=== PATIENT | female | born 1985 | race African-American/Black ===

== ENCOUNTER 2017-10-11 15:06 | Outpatient (CLI) | payer BC ==
--- NOTE | 2017-10-11 18:42 | MRI ---
MRI OF THE BRAIN WITH AND WITHOUT IV CONTRAST 10/11/17 HISTORY: Vestibular neuronitis. Dizziness. FINDINGS: No evidence of infarct, hemorrhage, mass, midline shift or abnormal extra-axial fluid collections are seen. Postcontrast images demonstrate a 7 mm focus of postcontrast enhancement in the alma to the le ft of midline. This demonstrates no signal abnormality on noncontrasted T1, T2 or FLAIR images and is consistent with capillary telangiectasia. No restricted diffusion is seen. No signal abnormalities are seen on the highly sensitive FLAIR image s. Dural calcifications are present. High resolution images of the IACs demonstrates no evidence of m ass or abnormal postcontrast enhancement. There is mucosal disease in the paranasal sinuses. IMPRESSION: 1. 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 2. Normal MR appearance of the IACs. The study was interpreted in consultation with Dr. Jone Joiner (neuroradiologist), who concurs. POS: [facility]
== END 2017-10-11 15:07 | disposition home or self-care (01) ==
LOC: MRI 15:06
PROVIDERS: ATTEND Otolaryngology Plastic Surgery within the Head & Neck
DX: H81.20 Vestibular neuronitis, unspecified ear (principal); I78.1 Nevus, non-neoplastic
CPT/HCPCS: 70553

== ENCOUNTER 2018-12-11 15:17 | Outpatient (CLI) | payer BC ==
--- NOTE | 2018-12-11 16:42 | ULT ---
Exam thyroid ultrasound History: Goiter. Thyroid lobe measures 5.9 x 2.3 x 2.9 cm. Left thyroid lobe measures 6.0 x 1.9 x 2.7 cm Thyroid isthmus measures 0.8 cm. Multiple subcentimeter nodules throughout the thyroid gland. Largest nodule is in the lower pole the left thyroid lobe, measuring 2.1 x 1 2 x 1.3 cm. This nodule has a predominantly isoechoic echotexture with small areas of cystic degeneration. IMPRESSION: Predominantly solid nodule involving the lower pole left thyroid lobe. TIRADS calculator score of TR3 (mildly suspicious). Recommendation: Follow-up. Transcribed Date/Time: 12/11/2018 5:00 PM
== END 2018-12-11 15:18 | disposition home or self-care (01) ==
LOC: SCSULT 15:17
PROVIDERS: ATTEND Family Medicine
DX: E04.9 Nontoxic goiter, unspecified (principal); E04.1 Nontoxic single thyroid nodule
CPT/HCPCS: 76536

== ENCOUNTER 2019-01-08 12:33 | Day surgery (SDC) | payer BC ==
[2019-01-07 11:55] VITALS: BMI 28.3
--- NOTE | 2019-01-08 14:01 | ULT ---
EXAM: US Thyroid Needle Bx PROVIDED CLINICAL HISTORY: Dominant heterogeneous thyroid nodule inferior pole left lobe thyroid gland. Fine-needle aspiration r ecommended. COMPARISON: Thyroid ultrasound on 12/11/2018. TECHNIQUE: After informed consent was obtained, the patient was placed on the sonography table in the supine pos ition. An area was marked and then meticulously prepped and draped in usual sterile fashion. Skin and subcutaneous tissues were infiltrated with buffered 1% lidocaine for local anesthesia. Utili zing concurrent real time ultrasound guidance, a total of 4 fine needle aspiration specimens of the heterogeneous dominant nodule in the inferior pole left lobe of thyroid gland was performed. Follow-up imaging after fine-needle aspiration demonstrates no fluid or findings to suggest hematoma at site of fine-needle aspiration. The patient tolerated the procedure well and without immediate complication. IMPRESSION: Technically successful ultrasound-guided fine-needle aspiration of a dominant heterogeneous nodule in ferior pole left lobe of the thyroid gland. Pathology is currently pending.
[2019-01-08 14:26] VITALS: BP 129/80; TEMP 98.7
== END 2019-01-08 13:45 | disposition home or self-care (01) ==
LOC: ULT 12:33
PROVIDERS: ATTEND Otolaryngology Plastic Surgery within the Head & Neck
PROC: 0G9G3ZX Drainage of Left Thyroid Gland Lobe, Percutaneous Approach, Diagnostic (ICD-10-PCS; principal; 2019-01-08)
DX: E04.1 Nontoxic single thyroid nodule (principal); I10 Essential (primary) hypertension; J45.20 Mild intermittent asthma, uncomplicated; K21.9 Gastro-esophageal reflux disease without esophagitis; Z79.2 Long term (current) use of antibiotics; Z79.82 Long term (current) use of aspirin; Z79.84 Long term (current) use of oral hypoglycemic drugs; Z79.899 Other long term (current) drug therapy
CPT/HCPCS: 60100; 76942; 88173

== ENCOUNTER 2021-12-05 14:17 | Outpatient (CLI) | payer BC | END 2021-12-05 14:18 | disposition home or self-care (01) | LOC: ULT 14:17 → BICULT 14:18 | PROVIDERS: ATTEND Obstetrics & Gynecology | DX: R94.5 Abnormal results of liver function studies (principal) | CPT/HCPCS: 76700 ==